=== PATIENT | female | born 1945 | race Hispanic/Latino ===

== ENCOUNTER 2017-09-20 13:45 | Emergency (ER) | payer OTHER | END 2017-09-20 15:05 | disposition home or self-care (01) | LOC: EDH 13:45 | DX: M25.561 Pain in right knee (principal); J45.909 Unspecified asthma, uncomplicated; Z88.0 Allergy status to penicillin; X50.0XXA Overexertion from strenuous movement or load, initial encounter; Y93.89 Activity, other specified; Y92.098 Other place in other non-institutional residence as the place of occurrence of the external cause; Y99.8 Other external cause status | CPT/HCPCS: 73562 ==

== ENCOUNTER 2019-03-20 08:06 | Day surgery (SDC) | payer OTHER ==
[2019-03-17 16:19] LABS: BASOPHILS % (AUTO) 1.2 % (0.0-5.0); LYMPHOCYTES % (AUTO) 25.7 % (21.0-51.0); MEAN CORPUSCULAR HEMOGLOBIN 28.3 pg (27.0-33.0); MEAN CORPUSCULAR HGB CONC 33.4 g/dL (32.0-36.0); MEAN CORPUSCULAR VOLUME 84.8 fL (79-99); MONOCYTES % (AUTO) 8.6 % (3.0-13.0); NEUTROPHILS % (AUTO) 58.5 % (40.0-77.0); NUCLEATED RED BLOOD CELLS 0.2 % (0.0-0.19); PLATELET COUNT (AUTO) 268 K/uL (130-400); RED BLOOD CELL COUNT(AUTO) 4.71 MIL/uL (4.00-5.50); RED CELL DISTRIBUTION WIDTH 13.8 % (11.0-15.5); WHITE BLOOD COUNT (AUTO) 6.2 K/uL (4.8-10.8)
[2019-03-17 16:33] LABS: CREATININE 1.2 mg/dL (0.5-1.5); POTASSIUM 4.2 mmol/L (3.5-5.1)
[2019-03-17 17:54] VITALS: BP 140/61
--- NOTE | 2019-03-17 18:38 | NUR ---
NURSING: REPORTED ABNORMAL EKG TO DR. PURVIS , NO NEW ORDERS, OK TO PROCEED.
[~2019-03-20] VITALS: Ht 149.9 cm; Wt 78.0 kg
[2019-03-20] VITALS (22 sets, daily range): BP systolic 124–139; BP diastolic 53–92
[~2019-03-20 08:06] MED LIST: CEFAZOLIN SODIUM 1 GM VIAL IVP ONE; SODIUM CHLORIDE 0.9% 1000ML 1,000 ML IV SCH
[2019-03-20] MEDS ORDERED: LACTATED RINGERS 1000ML 1,000 ML IV ONE (09:44)
[2019-03-20] MEDS ORDERED: CEFAZOLIN SODIUM 1 GM VIAL ONE (09:44)
[2019-03-20] MEDS ORDERED: MIDAZOLAM HCL 1 MG/ML 2ML VIAL ONE (09:49)
[2019-03-20] MEDS ORDERED: PROPOFOL 10 MG/ML 20ML VIAL IV ONE (09:49)
[2019-03-20] MEDS ORDERED: ROCURONIUM 10MG/1ML SYR 10 MG/ML ML ONE (09:49)
[2019-03-20] MEDS ORDERED: LIDOCAINE PF 2% 5ML ABBOJECT ONE (09:49)
[2019-03-20] MEDS ORDERED: FENTANYL CITRATE PF 50 MCG/1 ML 2ML VIAL ONE (09:50)
[2019-03-20] MEDS ORDERED: BUPIVACAINE/PF 0.5% 10ML VIAL ONE (10:06)
[2019-03-20] MEDS ORDERED: CLINDAMYCIN 900 MG/D5% WATER 50 ML IV ONE (10:09)
[2019-03-20] MEDS ORDERED: EPHEDRINE SULFATE 50 MG/ML AMPULE ONE (10:31)
[2019-03-20] MEDS ORDERED: MEPERIDINE-PF 25 MG/ML SYG ONE ×3 (10:38→11:59)
[2019-03-20] MEDS ORDERED: ONDANSETRON HCL 4 MG/2 ML VIAL ONE (10:38)
[2019-03-20] MEDS ORDERED: GLYCOPYRROLATE 1 MG/5 ML SYRINGE ONE (10:38)
[2019-03-20] MEDS ORDERED: NEOSTIGMINE 5MG/5ML SYR IV ONE (10:38)
[2019-03-20] MEDS ORDERED: DEXAMETHASONE SOD PHOSPHATE 10MG/ML 1ML VIAL ONE (10:38)
== END 2019-03-20 13:45 | disposition home or self-care (01) ==
LOC: SUH 08:06 → DAH 08:06 → SUH 13:45
PROVIDERS: ATTEND Student in an Organized Health Care Education/Training Program
DX: K80.10 Calculus of gallbladder with chronic cholecystitis without obstruction (principal); K85.10 Biliary acute pancreatitis without necrosis or infection; J45.909 Unspecified asthma, uncomplicated; E66.01 Morbid (severe) obesity due to excess calories; Z88.0 Allergy status to penicillin; Z88.6 Allergy status to analgesic agent
CPT/HCPCS: 36415; 47562; 80048; 85025; 88304; 93005; A4215; A4221; A4222; A4223; A4649 ×4; A4663; A4930 ×2; A6206; A6207; C1769 ×3; J1100; J2001; J2175 ×3; J2250; J2405; J2704; J2710; J3010; J3490 ×4; J7030; J7120; J0690

== ENCOUNTER 2020-02-28 18:47 | Inpatient (IN) | payer OTHER ==
[2020-02-28] MEDS ORDERED: PANTOPRAZOLE 40 MG/VIAL ONE (19:19)
[2020-02-28] MEDS ORDERED: FAMOTIDINE/PF 20 MG/2 ML VIAL IV ONE (19:20)
[2020-02-28 19:23] LABS: BASOPHILS % (AUTO) 0.5 % (0.0-5.0); EOSINOPHILS % (AUTO) 4.4 % (0.0-8.0); HEMATOCRIT 40.2 % (36-48); LYMPHOCYTES % (AUTO) 31.9 % (21.0-51.0); MEAN CORPUSCULAR HEMOGLOBIN 27.3 pg (27.0-33.0); MEAN CORPUSCULAR HGB CONC 32.3 g/dL (32.0-36.0); MEAN CORPUSCULAR VOLUME 84.3 fL (79-99); MONOCYTES % (AUTO) 6.3 % (3.0-13.0); NEUTROPHILS % (AUTO) 56.7 % (40.0-77.0); PLATELET COUNT (AUTO) 257 K/uL (130-400); RED BLOOD CELL COUNT(AUTO) 4.77 MIL/uL (4.00-5.50); RED CELL DISTRIBUTION WIDTH 13.8 % (11.0-15.5); WHITE BLOOD COUNT (AUTO) 9.7 K/uL (4.8-10.8)
[2020-02-28 19:37] LABS: INR 0.93 (0.85-1.15); PARTIAL THROMBOPLASTIN TIME 34.9 SEC (26.3-35.5); PROTHROMBIN TIME 10.1 SEC (9.6-11.6)
[2020-02-28 20:03] LABS: POTASSIUM 4.1 mmol/L (3.5-5.1)
[2020-02-28 20:08] LABS: ALBUMIN 3.4 g/dL (3.5-5.0); BILIRUBIN,TOTAL 0.3 mg/dL (0.2-1.0)
[2020-02-28] MEDS ORDERED: ONDANSETRON HCL 4 MG/2 ML VIAL ONE (20:10)
[2020-02-28] MEDS ORDERED: PHARMACY COMMUNICATION MISC SCH (22:00)
[2020-02-28] MEDS ORDERED: LACTATED RINGERS 1000ML 1,000 ML IV ONE (23:20)
[2020-02-29] MEDS ORDERED: ZOSYN 3.375GM+NS 50ML 50 ML IV ONE (00:14)
[2020-02-29 05:25] LABS: APPEARANCE,URINE Clear (CLEAR); BILIRUBIN,URINE Negative (NEGATIVE); COLOR,URINE Yellow (YELLOW); GLUCOSE, URINE (UA) Negative (NEGATIVE); KETONES,URINE Negative (NEGATIVE); LEUKOCYTE ESTERASE ,URINE Trace (NEGATIVE); NITRATE,URINE Negative (NEGATIVE); OCCULT BLOOD,URINE Negative (NEGATIVE); PH,URINE 6.5 (5.0-8.0); PROTEIN,URINE Negative (NEGATIVE)
[2020-02-29 05:43] LABS: BASOPHILS % (AUTO) 0.4 % (0.0-5.0); EOSINOPHILS % (AUTO) 1.2 % (0.0-8.0); HEMATOCRIT 39.8 % (36-48); LYMPHOCYTES % (AUTO) 12.5 % (21.0-51.0); MEAN CORPUSCULAR HEMOGLOBIN 27.2 pg (27.0-33.0); MEAN CORPUSCULAR HGB CONC 32.7 g/dL (32.0-36.0); MEAN CORPUSCULAR VOLUME 83.3 fL (79-99); MONOCYTES % (AUTO) 4.9 % (3.0-13.0); NEUTROPHILS % (AUTO) 80.7 % (40.0-77.0); PLATELET COUNT (AUTO) 244 K/uL (130-400); RED BLOOD CELL COUNT(AUTO) 4.78 MIL/uL (4.00-5.50); RED CELL DISTRIBUTION WIDTH 13.8 % (11.0-15.5); WHITE BLOOD COUNT (AUTO) 9.1 K/uL (4.8-10.8)
[2020-02-29 05:49] LABS: BACTERIA,URINE None Seen /HPF (None Seen); RBC,URINE None Seen /HPF (0-1); SQUAMOUS EPITHELIAL CELL,UR Rare /HPF (0-2); WBC,URINE 0-1 /HPF (0-1)
[2020-02-29 06:08] LABS: CARBON DIOXIDE 22 mmol/L (21-32); CHLORIDE 102 mmol/L (101-111); CREATININE 0.9 mg/dL (0.5-1.5); GLOMERULAR FILTR. RATE CALC 65 mL/min (>60); GLUCOSE,RANDOM 139 mg/dL (70-105); POTASSIUM 4.3 mmol/L (3.5-5.1); SODIUM SERUM 135 mmol/L (136-145); UREA NITROGEN, BLOOD 17 mg/dL (7-18)
[2020-02-29 06:15] LABS: ALANINE AMINOTRANSFERASE 95 U/L (12-78); ALBUMIN 3.1 g/dL (3.5-5.0); ASPARTATE AMINOTRANSFERASE 89 U/L (10-37); BILIRUBIN,TOTAL 0.5 mg/dL (0.2-1.0); CREATINE KINASE, TOTAL 58 U/L (21-232); MYOGLOBIN 48 ng/mL (10-92); PHOSPHORUS 3.8 mg/dL (2.5-4.9); TOTAL PROTEIN, SERUM 8.6 g/dL (6.0-8.3); TROPONIN I < 0.04 ng/mL (0.00-0.06)
--- NOTE | 2020-02-29 07:48 | NUR ---
ADMITTED TO ROOM 224 TELEMETRY BED FROM ED W/ DIAGNOSIS OF ACUTE PANCREATITIS, POSTIVIE FOR COVID RAPID TEST. US DONE IN ED. ADMISSION ASSESSMENT COMPLETED. AOX4 NO COMPLAINTS AT THIS TIME. VERY PLEASANT. # 20 G PIV TO R HAND INTACT W GOOD FLUSH AN BLOOD RETURN. SEE ADMISSION ASSESSMENT.
[2020-02-29] MEDS: LACTATED RINGERS 1000ML 1,000 ML IV SCH ×3 (08:00→20:46)
[2020-02-29 09:36] VITALS: BP 121/56
[2020-02-29] MEDS: PANTOPRAZOLE SODIUM 40 MG TABLET.DR PO SCH (09:51)
[2020-02-29 12:23] VITALS: BP 117/61
[2020-02-29] MEDS ORDERED: ATOR10TA69 PO (12:25)
[2020-02-29] MEDS ORDERED: METF-444 PO (12:25)
[2020-02-29] MEDS ORDERED: PHARMACY COMMUNICATION MISC SCH (13:45)
[2020-02-29] MEDS: ZOSYN 3.375GM+NS 50ML 50 ML IV SCH (15:13)
[2020-02-29 16:40] VITALS: BP 100/48
--- NOTE | 2020-02-29 17:45 | NUR ---
RESPIRATORY C/O OF SOB ADN ASK FOR SOME PREDNISONE, TOLD PT SHE DOES NOT HAVE PREDNISONE ORDERED, HAD RESPIRATORY COME CHECK SATS DOWN TO 87% AND PLACED ON 3LNC. SATS UP TO 98%.
[2020-02-29 19:52] VITALS: BP 95/70
[2020-02-29 23:22] VITALS: BP 109/64
[2020-03-01] MEDS: ZOSYN 3.375GM+NS 50ML 50 ML IV SCH ×4 (01:31→22:00)
[2020-03-01 03:22] VITALS: BP 101/47
[2020-03-01 05:42] LABS: BASOPHILS % (AUTO) 0.5 % (0.0-5.0); EOSINOPHILS % (AUTO) 6.3 % (0.0-8.0); LYMPHOCYTES % (AUTO) 22.1 % (21.0-51.0); MEAN CORPUSCULAR HEMOGLOBIN 26.8 pg (27.0-33.0); MEAN CORPUSCULAR HGB CONC 31.3 g/dL (32.0-36.0); MEAN CORPUSCULAR VOLUME 85.8 fL (79-99); MONOCYTES % (AUTO) 8.3 % (3.0-13.0); NEUTROPHILS % (AUTO) 62.5 % (40.0-77.0); PLATELET COUNT (AUTO) 201 K/uL (130-400); RED BLOOD CELL COUNT(AUTO) 4.66 MIL/uL (4.00-5.50); RED CELL DISTRIBUTION WIDTH 13.9 % (11.0-15.5); WHITE BLOOD COUNT (AUTO) 7.4 K/uL (4.8-10.8)
[2020-03-01 06:01] LABS: ALBUMIN 2.9 g/dL (3.5-5.0); BILIRUBIN,DIRECT 0.2 mg/dL (0.0-0.3); BILIRUBIN,TOTAL 0.5 mg/dL (0.2-1.0); POTASSIUM 3.4 mmol/L (3.5-5.1); TOTAL PROTEIN, SERUM 7.9 g/dL (6.0-8.3)
[2020-03-01 08:23] VITALS: BP 118/63
[2020-03-01] MEDS: PANTOPRAZOLE SODIUM 40 MG TABLET.DR PO SCH (08:56)
[2020-03-01] MEDS ORDERED: ATORVASTATIN CALCIUM 10 MG TABLET PO SCH (09:00)
[2020-03-01] MEDS ORDERED: METFORMIN HCL 500 MG TABLET PO SCH (09:00)
[2020-03-01 12:13] VITALS: BP 102/55
[2020-03-01] MEDS ORDERED: MAGNESIUM 2GM PREMIX 50ML 50 ML IV SCH (12:30)
--- NOTE | 2020-03-01 15:37 | NUR ---
[id number] received telephone consent for IM Letter from Benson Slaughter([phone]). Faxed IM Letter to [phone].
[2020-03-01 16:30] VITALS: BP 139/71
[2020-03-01 21:29] VITALS: BP 115/66
--- NOTE | 2020-03-01 23:14 | NUR ---
IV Zosyn 1700 dose did not get infused due to bad IV access. IV restart and infusion completed at 2215, therefore 2200 dose not given. Lab reports pt blood culture came back with gram positive cocci. Kevin Marie informed. No new order given. Patient is already on antibiotic. Continue to monitor.
[2020-03-02 00:29] VITALS: BP 131/72
[2020-03-02 04:49] VITALS: BP 123/52
[2020-03-02 04:52] LABS: BASOPHILS % (AUTO) 0.5 % (0.0-5.0); EOSINOPHILS % (AUTO) 5.9 % (0.0-8.0); LYMPHOCYTES % (AUTO) 21.6 % (21.0-51.0); MEAN CORPUSCULAR HEMOGLOBIN 27.4 pg (27.0-33.0); MEAN CORPUSCULAR HGB CONC 32.6 g/dL (32.0-36.0); MEAN CORPUSCULAR VOLUME 83.9 fL (79-99); MONOCYTES % (AUTO) 8.5 % (3.0-13.0); NEUTROPHILS % (AUTO) 63.4 % (40.0-77.0); PLATELET COUNT (AUTO) 206 K/uL (130-400); RED BLOOD CELL COUNT(AUTO) 4.53 MIL/uL (4.00-5.50); RED CELL DISTRIBUTION WIDTH 13.6 % (11.0-15.5); WHITE BLOOD COUNT (AUTO) 7.4 K/uL (4.8-10.8)
[2020-03-02 05:09] LABS: CREATININE 0.9 mg/dL (0.5-1.5); MAGNESIUM 1.8 mg/dL (1.80-2.40); POTASSIUM 3.4 mmol/L (3.5-5.1)
[2020-03-02] MEDS: LACTATED RINGERS 1000ML 1,000 ML IV SCH ×2 (05:13→08:20)
[2020-03-02] MEDS: ZOSYN 3.375GM+NS 50ML 50 ML IV SCH ×3 (05:14→20:56)
[2020-03-02 06:52] VITALS: BP 120/66
[2020-03-02] MEDS: PANTOPRAZOLE SODIUM 40 MG TABLET.DR PO SCH (08:19)
[2020-03-02 12:13] VITALS: BP 118/77
[2020-03-02] MEDS: ACETAMINOPHEN 325 MG TAB PO PRN (13:47)
[2020-03-02 16:01] VITALS: BP 142/72
[2020-03-02 20:55] VITALS: BP 125/59
[2020-03-03 00:21] VITALS: BP 148/62
[2020-03-03 04:12] VITALS: BP 119/49
[2020-03-03 05:19] LABS: HEMATOCRIT 40.1 % (36-48); MEAN CORPUSCULAR HEMOGLOBIN 27.3 pg (27.0-33.0); MEAN CORPUSCULAR HGB CONC 32.4 g/dL (32.0-36.0); MEAN CORPUSCULAR VOLUME 84.1 fL (79-99); RED BLOOD CELL COUNT(AUTO) 4.77 MIL/uL (4.00-5.50); RED CELL DISTRIBUTION WIDTH 13.5 % (11.0-15.5); WHITE BLOOD COUNT (AUTO) 7.4 K/uL (4.8-10.8)
[2020-03-03 05:39] LABS: BILIRUBIN,TOTAL 0.3 mg/dL (0.2-1.0); CREATININE 0.9 mg/dL (0.5-1.5); MAGNESIUM 1.9 mg/dL (1.80-2.40); POTASSIUM 3.5 mmol/L (3.5-5.1); TOTAL PROTEIN, SERUM 8.3 g/dL (6.0-8.3)
[2020-03-03] MEDS: ZOSYN 3.375GM+NS 50ML 50 ML IV SCH ×2 (05:59→14:22)
[2020-03-03 07:00] VITALS: BP 131/58
[2020-03-03] MEDS: PANTOPRAZOLE SODIUM 40 MG TABLET.DR PO SCH (08:18)
[2020-03-03 11:00] VITALS: BP 133/69
[2020-03-03] MEDS: ACETAMINOPHEN 325 MG TAB PO PRN (14:26)
[2020-03-03 16:00] VITALS: BP 148/68
--- NOTE | 2020-03-03 16:14 | NUR ---
Discharged to home via wheelchair to private auto per family. Belongings with patient; saline lock removed, pressure dressing dry/intact, vss, ambulatory w/steady gait, lungs clear, no covid sx; verbalized understanding of discharge instructions.
== END 2020-03-03 16:18 | disposition home or self-care (01) | DRG 438 ==
LOC: EDH 18:47 → EDHIP 21:24 → OBSVTOIN 21:24 → 2DH 02-29 08:00
PROVIDERS: ADMIT Internal Medicine; ATTEND Internal Medicine
DX: K85.90 Acute pancreatitis without necrosis or infection, unspecified (principal); U07.1 COVID-19; J12.89 Other viral pneumonia; E78.5 Hyperlipidemia, unspecified; E11.9 Type 2 diabetes mellitus without complications; Z71.3 Dietary counseling and surveillance; Z90.49 Acquired absence of other specified parts of digestive tract; Z88.0 Allergy status to penicillin; Z88.6 Allergy status to analgesic agent; Z83.3 Family history of diabetes mellitus; Z82.3 Family history of stroke; Z83.6 Family history of other diseases of the respiratory system; Z82.0 Family history of epilepsy and other diseases of the nervous system; Z82.49 Family history of ischemic heart disease and other diseases of the circulatory system
CPT/HCPCS: 36415; 71045; 76705; 80048; 80053; 80061; 80076; 81001; 82150; 82550; 83605; 83690; 83735; 83874; 84100; 84484; 85025; 85027; 85610; 85730; 87040; 87077; 87186; 87426; 93005; C9113; G0378; J2405; J2543; J3490; J7120